=== PATIENT | female | born 1985 | race Two or more races ===

== ENCOUNTER → 2020-02-11 | Outpatient (CLI) | payer OTHER ==
[2020-02-11 09:38] LABS: HEMATOCRIT 43.6 % (36.0-47.0); HEMOGLOBIN 14.8 g/dL (12.0-15.5); RED CELL DISTRIBUTION WIDTH 12.8 % (11.5-14.5); WHITE BLOOD COUNT 5.5 x10^3/uL (4.0-11.0)
[2020-02-11 09:57] LABS: CALCIUM 9.1 mg/dL (8.5-10.1); CREATININE 0.6 mg/dL (0.6-1.0); GFR 114.4; POTASSIUM 3.8 mmol/L (3.5-5.1); TOTAL BILIRUBIN 0.4 mg/dL (0.2-1.0)
[2020-02-11 09:58] LABS: CHOLESTEROL/HDL RATIO 6.6
[2020-02-11 10:02] LABS: FREE T4 0.98 ng/dL (0.76-1.46); THYROID STIM HORMONE (TSH) 1.301 uIU/mL (0.358-3.74)
[2020-02-11 22:08] LABS: FSH 6.4 mIU/mL (.); LUTEINIZING HORMONE 10.3 mIU/mL (.); PROLACTIN 7.6 ng/mL (4.8-23.3); TESTOSTERONE TOTAL 54 ng/dL (8-48)
[2020-02-12 05:12] LABS: HEMOGLOBIN A1C 5.3 % (4.8-5.6)
== END ==
LOC: LAB 08:05
PROVIDERS: ATTEND Nurse Practitioner Family
DX: E28.2 Polycystic ovarian syndrome (principal)
CPT/HCPCS: 36415; 80053; 80061; 82626; 83001; 83002; 83036; 83525; 84146; 84270; 84403; 84439; 84443; 85027

== ENCOUNTER → 2020-03-02 | Outpatient (CLI) | payer OTHER ==
--- NOTE | 2020-03-02 15:31 | KCIC ---
Endovaginal pelvic ultrasound INDICATION: PCOS COMPARISON: None. TECHNIQUE: Grayscale sonographic imaging of the pelvis was performed endovaginally with multiple cine clips acquired for documentation. FINDINGS: Distended urinary bladder is unremarkable. The uterus measures 6.4 x 3.6 x 3.3 cm in length by width by anteroposterior thickness. No uterine abnormalities are identified. The endometrial stripe measures 4.3 mm. In the low uterine segment, multiple cystic structures are present within the low uterine segment. The left ovary measures 3.2 x 3.2 x 2.1 cm and shows normal blood flow on color and spectral Doppler imaging. There are multiple follicles present, largest measuring 8 mm. At least 11 follicles are identified in the left ovary. The right ovary measures 2.8 x 3.0 x 2.3 cm and demonstrates normal flow on color and spectral Doppler imaging. Normal sized follicles are identified in the right ovary with at least 5 follicles identified on freeze-frame grayscale imaging. No adnexal mass. No pelvic free fluid. IMPRESSION: 1. Multiple cysts in the lower uterine segment, favored to represent nabothian cysts. 2. Multiple follicles are present in both ovaries. Correlate clinically for evidence of PCOS. 3. Otherwise unremarkable pelvic ultrasound. Electronically signed by: John Loving MD (03/02/2020 3:28 PM) [id number]
== END ==
LOC: KCIC US 14:11
PROVIDERS: ATTEND Nurse Practitioner Family
DX: E28.2 Polycystic ovarian syndrome (principal); N85.8 Other specified noninflammatory disorders of uterus
CPT/HCPCS: 76856

== ENCOUNTER 2020-06-18 08:50 | Emergency (ER) | payer OTHER ==
[~2020-06-18] VITALS: Ht 127 cm; Wt 72.7 kg
[2020-06-18] MEDS ORDERED: diazePAM 5 MG TABLET PO ONE (09:30)
[2020-06-18] MEDS ORDERED: ONDANSETRON ODT 4 MG TAB.RAPDIS. PO ONE (09:30)
--- NOTE | 2020-06-18 09:31 | PHYS DOC ---
Past Medical History Past Medical History: Other Additional Past Medical Histor: PCOS Past Surgical History: Other Smoking Status: Never Smoker Alcohol Use: Occasionally General Adult EDM: Chief Complaint: ABDOMINAL PAIN HPI: HPI: 34-year-old female past medical history of PCOS on Metformin, presents to the ED with complaints of sudden onset of bilateral upper abdominal pain, that progressed to suprapubic pain, now with right flank pain that has been constant that radiates down her pelvis with one episode of nonbloody nonbilious vomiting. Patient states the pain was so bad she was crying. Some relief with Tylenol. LMP was 1 week ago. Denies any associated dysuria, hematuria, fever, chills, vaginal bleeding, abnormal vaginal itching discharge or odor. Review of Systems: Review of Systems: Constitutional: Denies fever or chills. [] Eyes: Denies change in visual acuity. [] HENT: Denies nasal congestion or sore throat. [] Respiratory: Denies cough or shortness of breath. [] Cardiovascular: Denies chest pain or edema. [] GI: Denies abdominal pain, nausea, vomiting, bloody stools or diarrhea. [] : Denies dysuria, hematuria or vaginal bleeding Musculoskeletal: Denies joint pain or swelling Integument: Denies rash. [] Neurologic: Denies headache, focal weakness or sensory changes. [] Endocrine: Denies polyuria or polydipsia. [] Lymphatic: Denies swollen glands. [] Psychiatric: Denies depression or anxiety. [] Heart Score: Risk Factors: Risk Factors: DM, Current or recent (<one month) smoker, HTN, HLP, family history of CAD, obesity. Risk Scores: Score 0 - 3: 2.5% MACE over next 6 weeks - Discharge Home Score 4 - 6: 20.3% MACE over next 6 weeks - Admit for Clinical Observation Score 7 - 10: 72.7% MACE over next 6 weeks - Early Invasive Strategies Physical Exam: PE: Constitutional: Well developed, well nourished, no acute distress-pt surprisingly calm - very stoic , non-toxic appearance. HENT: Normocephalic, atraumatic, Eyes: EOMI, conjunctiva normal, no discharge. Neck: Normal range of motion, supple, Cardiovascular: S1/2 present, regular rhythm Lungs & Thorax: Speaking in full sentences, bilateral equal chest rise, no tachypnea or increased work of breathing Abdomen: soft, no tenderness, no peritonitis or guarding, no Alba sign, no McBurney's point tenderness, no Rovsing sign Skin: Warm, dry, no erythema, no rash. [] Back: No midline tenderness, right CVA tenderness. [] Extremities: No tenderness, no cyanosis, no lower extremity edema Neurologic: Alert and oriented X 3, normal motor function, normal sensory function, no focal deficits noted. [] Psychologic: Affect normal, judgement normal, mood normal. [] Current Patient Data: Vital Signs: Vital Signs Date Time Temp Pulse Resp B/P (MAP) Pulse Ox O2 Delivery O2 Flow Rate FiO2 06/18/20 09:08 97.4 85 16 126/77 (93) 97 Room Air 97.4 EKG: EKG: [] Radiology/Procedures: Radiology/Procedures: IMAGING REPORT Signed PATIENT: HERMINIA ARMIJO ACCOUNT: [id number] : 1985 LOCATION: ER AGE: 34 SEX: F EXAM STATUS: PRE ER ORD. PHYSICIAN: ELAINE HUNT DO REASON: right flank pain PROCEDURE: CT ABDOMEN PELVIS WO CONTRAST CT scan of the abdomen and pelvis without contrast 06/18/2020 CLINICAL HISTORY: Right flank pain. TECHNIQUE: Unenhanced, contiguous, 2 mm axial sections were obtained through the abdomen and pelvis. One or more of the following individualized dose reduction techniques were utilized for this study: 1. Automated exposure control. 2. Adjustment of the mA and/or kV according to patient size. 3. Use of iterative reconstruction technique. FINDINGS: Images through the lung bases demonstrate minimal dependent subsegmental atelectasis bilaterally. The liver, spleen, pancreas, and adrenal glands are within normal limits. The right kidney is mildly enlarged. Mild dilatation of the right intrarenal collecting system is seen. Mild to moderate dilatation of the right renal pelvis and proximal right ureter is seen. A 6 mm calculus is seen within the proximal/mid right ureter (at the L4-5 level) which is causing mild to moderate obstruction of the right collecting system. There is no evidence of obstruction of the left collecting system. The abdominal aorta tapers normally. The gallbladder is well-distended. The appendix is well-visualized and is within normal limits. No free fluid or free air is within the abdomen. There is no evidence of bowel obstruction. Images through the pelvis demonstrate the urinary bladder to be contracted. No adnexal mass is seen. Calcifications are seen within the pelvis consistent with phleboliths. No free fluid is noted. Mild S-shaped curvature of the thoracolumbar spine is seen. An old ununited fracture of the right femoral neck is seen. The right femoral head is small and appears to be incorporated with the right acetabulum. The left femoral head is subluxed superiorly. The left acetabulum is shallow. Moderate to severe degenerative changes are seen involving the left hip joint. IMPRESSION: 6 mm proximal/mid right ureteral calculus is seen which is causing mild to moderate obstruction of the right collecting system. Electronically signed by: El Greenfield MD (06/18/2020 10:10 AM) [id number] DICTATED and SIGNED BY: EL GREENFIELD MD DATE: 06/18/20 [id number] 0 Course & Med Decision Making: Course & Med Decision Making Pertinent Labs and Imaging studies reviewed. (See chart for details) Concern for right-sided ureteral colic with 6 mm stone and moderate hydronephrosis. Patient afebrile, no infection on urinalysis. Will discharge home with strict ED return precautions were given for fever, nausea, vomiting, flulike symptoms or severe pain. Encouraged urgent outpatient follow-up with PMD and urology outpatient as needed for lithotripsy vs ureteral stent placement. Life-threatening processes were considered but are low suspicion at this time, given history, physical exam and ED workup. Pt was educated on all prescription medications and adverse effects. All patient's questions were answered and pt was stable at time of discharge. Life/limb-threatening differential includes but is not limited to, ectopic , septic , sepsis/infection (endometritis, sti/pid, cystitis, pyelonephritis, Ronaldo's gangrene or necrotizing fasciitis, abscess), ovarian torsion, ruptured hemorrhagic ovarian cyst, endometriosis, ureterolithiasis, thrombophlebitis, hemorrhage/DIC, organ prolapse, abdominal aortic aneurysm, mesenteric ischemia, neoplasm, bowel obstruction or surgical abdomen. I spoken with the patient and her caregivers. I explained the patient's condition, diagnoses and treatment plan based on the information available to me at this time. I have answered the patient and her caregiver's questions and addressed any concerns. The patient and her caregivers have a good understanding of patient's diagnosis, condition and treatment plan as can be expected at this point. Vital signs have been stable. Patient's condition is stable and appropriate for discharge from the emergency department. Patient will pursue further outpatient evaluation with primary care physician or other designated or consulting physician as outlined in the discharge instru ctions. The patient and/or caregivers are agreeable to this plan of care and follow-up instructions have been explained in detail. The patient and/or caregivers have received these instructions in written form and have expressed an understanding of the discharge instructions. The patient and/or caregivers are aware that any significant change of condition or worsening of symptoms should prompt immediate return to this or the closest emergency department or call to [phone]. Yesy Disclaimer: Yesy Disclaimer: This electronic medical record was generated, in whole or in part, using a voice recognition dictation system. Departure Departure Impression: Primary Impression: Right ureteral stone Additional Impression: Hydronephrosis, right Disposition: 01 DC HOME SELF CARE/HOMELESS Condition: STABLE Referrals: EMRE MARTINS APRN (PCP) Patient Instructions: Kidney Stones, Ureteral Colic Additional Instructions: FOLLOW UP WITH UROLOGY: [facility] [address] [address] APPOINTMENTS: [phone] EMERGENCY DEPARTMENT GENERAL DISCHARGE INSTRUCTIONS Thank you for coming to [facility] Emergency Department (ED) today and trusting us with you care. We trust that you had a positive experience in our E mergency Department. If you wish to speak to the department management, you may call the Director at [phone]. YOUR FOLLOW UP INSTRUCTIONS ARE FOLLOWS: 1. Do you have a private Doctor? If you do not have a private doctor, please ask for a resource list of physicians or clinics that may be able to assist you with follow up care. 2. The Emergency Physicain has interpreted your x-rays. The X-Ray specialist will also review them. If there is a change in the findings, you will be notified in 48 hours when at all possible. 3. A lab test or culture has been done, your results will be reviewed and you will be notified if you need a change in treatment. ADDITIONAL INSTRUCTIONS AND INFORMATION: 1. Your care today has been supervised by a physician who is specially trained in emergency care. Many problems require more than one evaluation for a complete diagnosis a nd treatment. We recommend that you schedule your follow up appointment as recommended to ensure complete treatment of you illness or injury. If you are unable to obtain follow up care and continue to have a problem, or if your condition worsens, we recommend that you return to the ED. 2. We are not able to safely determine your condition over the phone nor are we able to give sound medical advice over the phone. For these safety reasons, if you call for medical advice we will ask you to come to the ED for further evaluation. 3. If you have any questions regarding these discharge instructions please call the ED at [phone]. SAFETY INFORMATION: In the interest of safety, wellness, and injury prevention; we encourage you to wear your sealbelt, if you smoke; quite smoking, and we encourage family to use a protective helmet for bicycling and other sporting events that present an increased risk for head injury. IF YOUR SYMPTOMS WORSEN OR NEW SYMPTOMS DEVELOP, OR YOU HAVE CONCERNS ABOUT YOUR CONDITION; OR IF YOUR CONDITION WORSENS WHILE YOU ARE WAITING FOR YOUR FOLLOW UP APPOINTMENT; EITHER CONTACT YOUR PRIMARY CARE DOCTOR, THE PHYSICIAN WHOSE NAME AND NUMBER YOU WERE GIVEN, OR RETURN TO THE ED IMMEDIATELY. Scripts Ondansetron (ONDANSETRON ODT) 4 Mg Tab.rapdis 1 TAB PO PRN Q6-8HRS, #20 TAB Prov: ELAINE HUNT DO 06/18/20 Tamsulosin Hcl (FLOMAX) 0.4 Mg Cap.er.24h 1 CAP PO DAILY for 14 Days, #14 CAP 0 Refills Prov: ELAINE HUNT DO 06/18/20 Hydrocodone Bit/Acetaminophen (HYDROCODONE-APAP 5-325 ) 1 Tab Tablet 1 TAB PO PRN Q6HRS PRN for PAIN for 4 Days, #16 TAB 0 Refills causes constipation Prov: ELAINE HUNT DO 06/18/20 ELAINE HUNT DO Jun 18, 2020 09:31
[2020-06-18 09:39] LABS: BILIRUBIN,URINE NEGATIVE (NEG); CLARITY,URINE CLEAR; COLOR,URINE YELLOW; NITRITE,URINE NEGATIVE (NEG); PROTEIN,URINE 30 mg/dL (NEG-TRACE); UROBILINOGEN,URINE 0.2 mg/dL (0.2 mg/dL)
[2020-06-18 09:47] LABS: BARBITURATES NEG (NEG); BENZODIAZEPINES NEG (NEG); CANNABINOIDS NEG (NEG); COCAINE NEG (NEG); METHADONE NEG (NEG); OPIATES NEG (NEG); PHENCYCLIDINE NEG (NEG)
[2020-06-18 09:51] LABS: AMPHETAMINE/METHAMPHETAMINE NEG (NEG)
--- NOTE | 2020-06-18 10:13 | RAD ---
CT scan of the abdomen and pelvis without contrast 06/18/2020 CLINICAL HISTORY: Right flank pain. TECHNIQUE: Unenhanced, contiguous, 2 mm axial sections were obtained through the abdomen and pelvis. One or more of the following individualized dose reduction techniques were utilized for this study: 1. Automated exposure control. 2. Adjustment of the mA and/or kV according to patient size. 3. Use of iterative reconstruction technique. FINDINGS: Images through the lung bases demonstrate minimal dependent subsegmental atelectasis bilate rally. The liver, spleen, pancreas, and adrenal glands are within normal limits. The right kidney is mildly enlarged. Mild dilatation of the right intrarenal collecting system is see n. Mild to moderate dilatation of the right renal pelvis and proximal right ureter is seen. A 6 mm ca lculus is seen within the proximal/mid right ureter (at the L4-5 level) which is causing mild to mode rate obstruction of the right collecting system. There is no evidence of obstruction of the left roberta ecting system. The abdominal aorta tapers normally. The gallbladder is well-distended. The appendix is well-visualiz ed and is within normal limits. No free fluid or free air is within the abdomen. There is no evidence of bowel obstruction. Images through the pelvis demonstrate the urinary bladder to be contracted. No adnexal mass is seen. Calcifications are seen within the pelvis consistent with phleboliths. No free fluid is noted. Mild S-shaped curvature of the thoracolumbar spine is seen. An old ununited fracture of the right fem oral neck is seen. The right femoral head is small and appears to be incorporated with the right acet abulum. The left femoral head is subluxed superiorly. The left acetabulum is shallow. Moderate to sev ere degenerative changes are seen involving the left hip joint. IMPRESSION: 6 mm proximal/mid right ureteral calculus is seen which is causing mild to moderate obstr uction of the right collecting system. Electronically signed by: El Greenfeild MD (06/18/2020 10:10 AM) [id number]
[2020-06-18 10:14] LABS: BACTERIA,URINE FEW /HPF (0-FEW); RBC,URINE 20-40 /HPF (0-2)
[2020-06-18] MEDS ORDERED: HYDR-2761 PO (10:29)
[2020-06-18] MEDS ORDERED: ONDA4TAB12 PO (10:29)
[2020-06-18] MEDS ORDERED: TAMS0.4C97 PO (10:29)
[2020-06-18] MEDS ORDERED: TAMSULOSIN 0.4 MG CAP.ER.24H. PO ONE (10:30)
[2020-06-18] MEDS ORDERED: HYDROcodone/APAP 10/325 1 TAB TABLET PO ONE (10:30)
[2020-06-18 10:31] VITALS: BP 122/77
== END 2020-06-18 11:47 | disposition home or self-care (01) ==
LOC: ER 08:50
DX: N13.2 Hydronephrosis with renal and ureteral calculous obstruction (principal)
CPT/HCPCS: 74176; 80307; 81001; 81025; 99284

== ENCOUNTER → 2020-07-13 | Outpatient (CLI) | payer OTHER ==
[2020-06-18 10:31] VITALS: BP 122/77
[~2020-07-13] MED LIST: HYDR-2761 PO; ONDA4TAB12 PO; TAMS0.4C97 PO
--- NOTE | 2020-07-13 09:11 | KCIC ---
EXAM: Abdomen, single view. HISTORY: Right ureterolithiasis. COMPARISON: CT dated 06/18/2020. FINDINGS: There is colonic stool which limits evaluation for nephrolithiasis. The recently demonstrat ed right ureteral stone is not clearly seen. There is a single right pelvic phlebolith. There is a no nobstructive bowel gas pattern. There is scoliosis. 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 IMPRESSION: 1. No convincing renal or ureteral stone. The exam is limited due to overlying bowel. 2. Nonobstructive bowel gas pattern. Electronically signed by: Vivian Back MD (07/13/2020 9:08 AM) [id number]
== END ==
LOC: KCIC 08:23
PROVIDERS: ATTEND Urology
DX: N20.1 Calculus of ureter (principal); I87.8 Other specified disorders of veins
CPT/HCPCS: 74018

== ENCOUNTER → 2020-08-19 | Outpatient (CLI) | payer OTHER ==
[2020-08-22 11:11] LABS: ALTERNARIA <0.10 kU/L (Class 0); ASH <0.10 kU/L (Class 0); ASPERGILLUS <0.10 kU/L (Class 0); BERMUDA <0.10 kU/L (Class 0); CAT DANDER <0.10 kU/L (Class 0); CLADOSPORIUM <0.10 kU/L (Class 0); COCKROACH <0.10 kU/L (Class 0); COTTONWOOD <0.10 kU/L (Class 0); D PTERONYSSINUS <0.10 kU/L (Class 0); DOG DANDER <0.10 kU/L (Class 0); DUST MITE <0.10 kU/L (Class 0); ELM <0.10 kU/L (Class 0); MAPLE <0.10 kU/L (Class 0); MOUNTAIN CEDAR <0.10 kU/L (Class 0); MULBERRY <0.10 kU/L (Class 0); NETTLE <0.10 kU/L (Class 0); OAK TREE <0.10 kU/L (Class 0); PENICILLIUM <0.10 kU/L (Class 0); RAST IGE 4 IU/mL (6-495); RUSSIAN THISTLE <0.10 kU/L (Class 0); SHEEP SORREL <0.10 kU/L (Class 0); SHORT RAGWEED <0.10 kU/L (Class 0); TIMOTHY GRASS <0.10 kU/L (Class 0)
== END ==
LOC: LAB 12:35
PROVIDERS: ATTEND Nurse Practitioner Family
DX: J30.9 Allergic rhinitis, unspecified (principal)
CPT/HCPCS: 36415; 82785; 86003